=== PATIENT | female | born 1995 | race Caucasian/White ===

== ENCOUNTER 2018-05-31 18:36 | Emergency (ER) | payer MEDICAID ==
[2018-05-31] MEDS ORDERED: Amoxicillin/Clavulanate K 875-125 MG Tab ONE (18:40)
[2018-05-31] MEDS ORDERED: Ketorolac 30 MG/ML SDV IM ONE (19:17)
--- NOTE | 2018-05-31 19:21 | EDM.PDOC ---
ED HPI GENERAL MEDICAL PROBLEM - General Chief Complaint: General Stated Complaint: MOUTH/HEAD PAIN Time Seen by Provider: 05/31/18 19:00 Source of Information: Reports: Patient History Limitations: Reports: No Limitations - History of Present Illness INITIAL COMMENTS - FREE TEXT/NARRATIVE: According to patient , she claims she has been having right lower jaw pain from a infected tooth for past 3 days. Pain has gradually got worse, and today she has noticed swelling over the right lower jaw. Also has been running fever on and off. Has been taking Aleve. Not getting better. No nausea or vomiting. Rates her pin around 10/10.C/o pain in her right jaw radiating into her right ear today. No URI symptoms. Pt has had problem with her right lower first premolar tooth for a long time now.Pt is from [place] and has had dental appointment next week. . Onset Date: 05/27/18 Location: Reports: Face, Other (tooth) Quality: Reports: Ache Severity: Severe Improves with: Reports: None Worsens with: Reports: Cold Therapy Associated Symptoms: Reports: Fever/Chills, Headaches. Denies: Confusion, Chest Pain, Cough, Diaphoresis, Nausea/Vomiting, Rash, Seizure, Shortness of Breath, Syncope, Weakness right lower tooth/mouth Pain Score (Numeric/FACES): 10 - Related Data Allergies Allergy/AdvReac Type Severity Reaction Status Date / Time adhesive Allergy Rash Verified 05/31/18 18:46 ibuprofen Allergy Dizziness Verified 05/31/18 18:46 ketorolac [From Toradol] Allergy Dizziness Verified 05/31/18 18:46 morphine Allergy Nausea Verified 05/31/18 18:46 naproxen [From Naprosyn] Allergy Dizziness Verified 05/31/18 18:46 Home Meds: Home Meds NK [No Known Home Meds] 05/31/18 [History] ED ROS GENERAL - Review of Systems Review Of Systems: See Below Constitutional: Reports: Fever. Denies: Chills, Malaise, Weakness HEENT: Reports: Dental Pain. Denies: Rhinitis, Throat Pain, Throat Swelling, Vertigo, Vision Change Respiratory: Denies: Cough, Sputum Cardiovascular: Denies: Chest Pain, Lightheadedness GI/Abdominal: Denies: Abdominal Pain, Nausea, Vomiting : Denies: Dysuria, Frequency ED EXAM, GENERAL - Physical Exam Exam: See Below Exam Limited By: No Limitations General Appearance: Alert, WD/WN, Mild Distress Eye Exam: Bilateral Eye: EOMI, PERRL Ears: Normal External Exam, Normal Canal, Hearing Grossly Normal, Normal TMs Ear Exam: Bilateral Ear: Auricle Normal, Canal Normal, TM normal Nose: Normal Inspection, Normal Mucosa, No Blood Throat/Mouth: Normal Inspection, Normal Gums, Normal Oropharynx, Normal Voice, No Airway Compromise, Other (Right first premolar tooth does have some caries changes. Also there is swellingof the gums round it. Very tender to percussion.) Head: Facial Swelling (right lower jaw swelling and erythema) Neck: Normal Inspection, Supple, Non-Tender, Full Range of Motion Respiratory/Chest: No Respiratory Distress, Lungs Clear, Normal Breath Sounds, No Accessory Muscle Use, Chest Non-Tender Cardiovascular: Normal Peripheral Pulses, Regular Rate, Rhythm, No Edema, No Gallop, No JVD, No Murmur, No Rub Course - Vital Signs Text/Narrative:: Pt has right first premolar caries with tooth infection , causing swelling and pain on the right side of face. Pt reassured. She did receive Toradol 30mg Im for pain ( pt does not have allergy to Toradol- it makes her dizzy) , also she is taking Aleve presently ( some times causes upset stomach). Pt has been started on Augmentin 875mg twice daily for 10 days. Advised to take OTC Aleve 2 tabs twice daily with food. Benzocaine oragel to the gum around the infected tooth before eating and drinking. Pt has appointment with her dentist in [facility] next week, advised to followup. Last Recorded V/S: Last Vital Signs Temp 98.6 F 05/31/18 18:47 Pulse 85 05/31/18 18:47 Resp 17 05/31/18 18:47 BP 138/82 05/31/18 18:47 Pulse Ox 99 05/31/18 18:47 Departure - Departure Time of Disposition: 19:15 Disposition: Home, Self-Care 01 Condition: Good Clinical Impression: Infected tooth - Discharge Information *PRESCRIPTION DRUG MONITORING PROGRAM REVIEWED*: Not Applicable *COPY OF PRESCRIPTION DRUG MONITORING REPORT IN PATIENT JEANNA: Not Applicable Referrals: PCP,None [Primary Care Provider] - - Problem List & Annotations (1) Infected tooth SNOMED Code(s): 486933127 Code(s): K04.7 - PERIAPICAL ABSCESS WITHOUT SINUS Status: Acute - Problem List Review Problem List Initiated/Reviewed/Updated: Yes - Assessment/Plan Assessment:: Infected right first premolar Plan: Pt has right first premolar caries with tooth infection , causing swelling and pain on the right side of face. Pt reassured. She did receive Toradol 30mg Im for pain ( pt does not have allergy to Toradol- it makes her dizzy) , also she is taking Aleve presently ( some times causes upset stomach). Pt has been started on Augmentin 875mg twice daily for 10 days. Advised to take OTC Aleve 2 tabs twice daily with food. Benzocaine oragel to the gum around the infected tooth before eating and drinking. Pt has appointment with her dentist in [facility] next week, advised to followup.
[2018-05-31] MEDS ORDERED: Ketorolac 30 MG/ML SDV ONE (19:24)
== END 2018-05-31 19:24 | disposition home or self-care (01) ==
LOC: LB.ED 18:36
DX: K04.7 Periapical abscess without sinus (principal); Z91.09 Other allergy status, other than to drugs and biological substances; Z88.6 Allergy status to analgesic agent; Z88.5 Allergy status to narcotic agent
CPT/HCPCS: 96372; 99282; A9270-GY; J1885

== ENCOUNTER 2020-02-13 16:34 | Emergency (ER) | payer MEDICAID ==
[2020-02-13] MEDS ORDERED: Acetaminophen 325 MG Tab PO ONE (16:58)
[2020-02-13] MEDS ORDERED: Amoxicillin/Clavulanate K 875-125 MG Tab ONE (17:00)
[2020-02-13] MEDS ORDERED: Acetaminophen 325 MG Tab ONE (17:10)
[2020-02-13] MEDS ORDERED: methylPREDNISolone Sodium Succinate 125 MG/2 ML SDV IM ONE (17:23)
--- NOTE | 2020-02-13 17:33 | EDM.PDOC ---
ED HPI GENERAL MEDICAL PROBLEM - General Chief Complaint: General Stated Complaint: TOOTH SWELLING AND PAIN Time Seen by Provider: 02/13/20 17:00 Source of Information: Reports: Patient History Limitations: Reports: No Limitations - History of Present Illness INITIAL COMMENTS - FREE TEXT/NARRATIVE: Patient is a 24 y/o female who presents for right lower jaw pain x 2 days and ri ght shoulder pain. She was holding onto something with her boyfriend, when he unexpectedly let go of it and it pulled on her shoulder. She has limited range of motion and soreness ever since. Patient has multiple broken teeth and has been waiting on her insurance card to make a dentist apt. No drooling, no swelling, no difficulty breathing/swallowing, no fever, no n/v/d. Right Lower Gums Pain Score (Numeric/FACES): 8 Right Shoulder Pain Score (Numeric/FACES): 8 - Related Data Allergies Allergy/AdvReac Type Severity Reaction Status Date / Time adhesive Allergy Rash Verified 05/31/18 18:46 ibuprofen Allergy Dizziness Verified 05/31/18 18:46 ketorolac [From Toradol] Allergy Dizziness Verified 05/31/18 18:46 morphine Allergy Nausea Verified 05/31/18 18:46 naproxen [From Naprosyn] Allergy Dizziness Verified 05/31/18 18:46 Home Meds: Home Meds NK [No Known Home Meds] 05/31/18 [History] Past Medical History - Past Health History Medical/Surgical History: Denies Medical/Surgical History Other HEENT History: wisdom teeth removed - Infectious Disease History Infectious Disease History: Reports: Herpes - Past Surgical History Other Musculoskeletal Surgeries/Procedures:: trouble with right arm going to sleep requent times through out the day Social & Family History - Tobacco Use Tobacco Use Status *Q: Never Tobacco User Second Hand Smoke Exposure: No - Caffeine Use Caffeine Use: Reports: Coffee - Recreational Drug Use Recreational Drug Use: No ED ROS GENERAL - Review of Systems Review Of Systems: See Below Constitutional: Reports: No Symptoms HEENT: Reports: Dental Pain Respiratory: Reports: No Symptoms Cardiovascular: Reports: No Symptoms GI/Abdominal: Reports: No Symptoms : Reports: No Symptoms Musculoskeletal: Reports: Shoulder Pain Skin: Reports: No Symptoms Neurological: Reports: No Symptoms Psychiatric: Reports: No Symptoms ED EXAM, GENERAL - Physical Exam Exam: See Below Exam Limited By: No Limitations General Appearance: Alert, No Apparent Distress Nose: Normal Inspection, Normal Mucosa, No Blood Throat/Mouth: Normal Inspection, Normal Lips, Normal Gums, Normal Oropharynx, Normal Voice, No Airway Compromise, Other (no swelling appreciated; several broken teeth diffused to lower jaw at the gum line; no erythema; no purulent drainage; no fluctuance) Head: Atraumatic, Normocephalic Neck: Normal Inspection, Supple Respiratory/Chest: No Respiratory Distress Extremities: Normal Inspection, No Pedal Edema, Normal Capillary Refill, Limited Range of Motion, Other (right shoulder with limited ROM; no deformity; nontender with palpation) Neurological: Alert, Oriented, CN II-XII Intact, Normal Cognition, Normal Gait, No Motor/Sensory Deficits Psychiatric: Normal Affect, Normal Mood Skin Exam: Warm, Dry, Intact, Normal Color, No Rash Course - Vital Signs Text/Narrative:: Tylenol and solumedrol given. XR negative for fracture or dislocation. Augmentin given to patient to take twice daily for 10 days. Follow up with PCP for right shoulder, wear sling for comfort and no use for 1 week. Follow up with dentist as soon as possible for dental work. Last Recorded V/S: Last Vital Signs Temp 36.7 C 02/13/20 16:45 Pulse 84 02/13/20 16:45 Resp 18 02/13/20 16:45 BP 142/72 H 02/13/20 16:45 Pulse Ox 100 02/13/20 16:45 - Orders/Labs/Meds Orders: Active Orders 24 hr Category Date Time Status Shoulder Comp Rt [CR] Stat Exams 02/13/20 16:57 Taken Meds: Medications Discontinued Medications Generic Name Dose Route Start Last Admin Trade Name Kamryn PRN Reason Stop Dose Admin Acetaminophen 650 mg 02/13/20 16:58 02/13/20 17:01 Tylenol PO 02/13/20 16:59 650 mg NOW ONE Administration Acetaminophen Confirm 02/13/20 17:10 02/13/20 17:03 Tylenol Administered 02/13/20 17:11 Not Given Dose 650 mg .ROUTE .STK-MED ONE Methylprednisolone Sodium Succinate 125 mg 02/13/20 17:23 Solu-Medrol IM 02/13/20 17:24 ONETIME ONE Departure - Departure Time of Disposition: 17:40 Disposition: Home, Self-Care 01 Condition: Good Clinical Impression: Pain, dental Right shoulder pain Qualifiers: Chronicity: acute Qualified Code(s): M25.511 - Pain in right shoulder - Discharge Information *PRESCRIPTION DRUG MONITORING PROGRAM REVIEWED*: Not Applicable *COPY OF PRESCRIPTION DRUG MONITORING REPORT IN PATIENT JEANNA: Not Applicable Referrals: PCP,None [Primary Care Provider] - Sepsis Event Note (ED) - Evaluation Sepsis Screening Result: No Definite Risk - Focused Exam Vital Signs: Vital Signs Temp Pulse Resp BP Pulse Ox 02/13/20 16:45 36.7 C 84 18 142/72 H 100 - My Orders Last 24 Hours: My Active Orders 02/13/20 16:57 Shoulder Comp Rt [CR] Stat - Assessment/Plan Last 24 Hours: My Active Orders 02/13/20 16:57 Shoulder Comp Rt [CR] Stat
--- NOTE | 2020-02-14 10:02 | CR ---
DATE OF SERVICE: 02/13/20 CLINICAL DATA: pain RIGHT SHOULDER: No acute fracture or dislocation. No lytic or blastic bone lesions. [id number] MTDD
== END 2020-02-13 17:45 | disposition home or self-care (01) ==
LOC: LB.ED 16:34
DX: M25.511 Pain in right shoulder (principal); K08.89 Other specified disorders of teeth and supporting structures; Z91.048 Other nonmedicinal substance allergy status; Z88.6 Allergy status to analgesic agent; Z88.5 Allergy status to narcotic agent; Z88.8 Allergy status to other drugs, medicaments and biological substances
CPT/HCPCS: 73030-RT; 96372; 99283-25; A9270-GY; J2930

== ENCOUNTER 2020-11-04 14:04 | Emergency (ER) | payer MEDICAID ==
--- NOTE | 2020-11-04 14:51 | EDM.PDOC ---
ED HPI GENERAL MEDICAL PROBLEM - General Chief Complaint: Genitourinary Problem Stated Complaint: BLADDER INFECTION Time Seen by Provider: 11/04/20 14:46 Source of Information: Reports: Patient History Limitations: Reports: No Limitations - History of Present Illness INITIAL COMMENTS - FREE TEXT/NARRATIVE: This patient presents to the emergency department today stating she has a bladder infection. She states that she has some right pelvic pain that started just prior to arrival. She denies any dysuria, frequency, or urgency. She denies back pain. She has not had a fever. She denies any vaginal discharge, drainage, pain with intercourse. She states she had her tubes tied and has no chance of . Pelvic Pain Score (Numeric/FACES): 4 - Related Data Allergies Allergy/AdvReac Type Severity Reaction Status Date / Time adhesive Allergy Rash Verified 11/04/20 14:20 ibuprofen Allergy Dizziness Verified 11/04/20 14:20 ketorolac [From Toradol] Allergy Dizziness Verified 11/04/20 14:20 morphine Allergy Nausea Verified 11/04/20 14:20 naproxen [From Naprosyn] Allergy Dizziness Verified 11/04/20 14:20 Home Meds: Home Meds NK [No Known Home Meds] 05/31/18 [History] Past Medical History - Past Health History Medical/Surgical History: Denies Medical/Surgical History Other HEENT History: wisdom teeth removed - Infectious Disease History Infectious Disease History: Reports: Herpes - Past Surgical History Other Musculoskeletal Surgeries/Procedures:: trouble with right arm going to sleep requent times through out the day Social & Family History - Family History Family Medical History: No Pertinent Family History - Tobacco Use Tobacco Use Status *Q: Former Tobacco User Used Tobacco, but Quit: Yes Month/Year Tobacco Last Used: 2007 - Caffeine Use Caffeine Use: Reports: Energy Drinks - Recreational Drug Use Recreational Drug Use: No ED ROS GENERAL - Review of Systems Review Of Systems: Comprehensive ROS is negative, except as noted in HPI. ED EXAM, RENAL/ - Physical Exam Exam: See Below Exam Limited By: No Limitations General Appearance: Alert, No Apparent Distress Ears: Normal External Exam Nose: Normal Inspection Throat/Mouth: Normal Inspection Head: Atraumatic, Normocephalic Neck: Normal Inspection Respiratory/Chest: No Respiratory Distress, No Accessory Muscle Use GI/Abdominal: Soft, Non-Tender, No Distention (Female) Exam: Other (Mild tenderness with deep palpation of right pelvic area.) Back Exam: No: CVA Tenderness (R), CVA Tenderness (L) Neurological: Alert, Oriented Psychiatric: Normal Affect Skin Exam: Warm, Dry Course - Vital Signs Last Recorded V/S: Last Vital Signs Temp 36.2 C 11/04/20 14:15 Pulse 95 11/04/20 14:15 Resp 18 11/04/20 14:15 BP 128/77 11/04/20 14:15 Pulse Ox 97 11/04/20 14:15 - Orders/Labs/Meds Labs: Laboratory Tests 11/04/20 Range/Units 14:21 Urine Color Yellow Urine Appearance Clear (CLEAR) Urine pH 7.0 (5.0-8.0) Ur Specific Vanderbilt 1.025 (1.003-1.030) Urine Protein Negative (NEGATIVE) mg/dL Urine Glucose (UA) Negative (NEGATIVE) mg/dL Urine Ketones Negative (NEGATIVE) mg/dL Urine Occult Blood Negative (NEGATIVE) Urine Nitrite Negative (NEGATIVE) Urine Bilirubin Negative (NEGATIVE) Urine Urobilinogen 0.2 (0.2-1.0) E.U./dL Ur Leukocyte Esterase Negative (NEGATIVE) - Re-Assessments/Exams Free Text/Narrative Re-Assessment/Exam: 11/05/20 09:41 This patient presented to the emergency department stating she had a neck infection. Her urine is clean and does not suggest there is any evidence of a UTI. I did explain the other causes of pelvic pain to the patient and suggested we pursue this by doing a pelvic with STD testing and she declined this. She stated she was leaving town and would follow-up with her regular healthcare provider. Given her essentially normal examination and her nontoxic appearance I am not terribly concerned that she has a significant etiology for this pain. There is no suggestion of pyelonephritis and infected stone or any type of abscess. Urine culture will not be performed as she is extremely low risk. She was instructed to return immediately should she develop any fevers, chills, flank pain, vomiting, worsening pelvic pain. Departure - Departure Time of Disposition: 14:50 Disposition: Home, Self-Care 01 Condition: Good Clinical Impression: Pelvic pain - Discharge Information *PRESCRIPTION DRUG MONITORING PROGRAM REVIEWED*: No *COPY OF PRESCRIPTION DRUG MONITORING REPORT IN PATIENT JEANNA: No Instructions: Pelvic Pain, Female, [id number], Pelvic Pain, Female Referrals: PCP,None [Primary Care Provider] - Forms: ED Department Discharge Additional Instructions: Discharge home. Tylenol for pain or discomfort. Follow up wit your primary provider if symptoms get worse or you have concerns. Sepsis Event Note (ED) - Evaluation Sepsis Screening Result: No Definite Risk
== END 2020-11-04 14:50 | disposition home or self-care (01) ==
LOC: LB.ED 14:04
DX: R10.2 Pelvic and perineal pain (principal); Z88.5 Allergy status to narcotic agent; Z91.040 Latex allergy status; Z88.6 Allergy status to analgesic agent; Z88.8 Allergy status to other drugs, medicaments and biological substances; Z87.891 Personal history of nicotine dependence
CPT/HCPCS: 81003; 99283; 99284